=== PATIENT | male | born 1975 | race Caucasian/White ===

== ENCOUNTER 2019-07-14 10:45 | Observation (INO) | payer OTHER ==
[2019-07-14] MEDS ORDERED: ASPIRIN 81 MG PO STA (11:28)
[2019-07-14] MEDS ORDERED: NITROGLYCERIN OINT 1 INCH/GM PACKET TOPICAL STA (11:28)
--- NOTE | 2019-07-14 11:33 | ED ---
General Adult HPI - General Chief complaint: Chest Pain Stated complaint: hand pain/swelling Time Seen by Provider: 07/14/19 11:15 Source: patient, RN notes reviewed, old records reviewed Mode of arrival: ambulatory Limitations: no limitations - History of Present Illness Initial comments: This is a 43-year-old male who presents emergency department with past medical history significant for smoking and has a strong family history of heart disease. Patient states he's been having intermittent chest pain over the last 2 weeks he states it lasted for about 5-20 minutes at a time and it comes every day for 5 times today. Patient states she's also had some fluttering in his chest. Patient denies any shortness of breath or radiation of the discomfort. Patient denies any nausea. Patient states however he does break out in sweats where he has actually perspiration on his forehead. Patient denies any previous cardiac history. Patient denies any recent fever or chills. Patient denies any abdominal pain patient denies any vomiting or diarrhea. Patient also is complaining of right hand dysfunction. Patient states 3 months ago he fell on it he saw his primary medical care doctor and was swollen up he was unable to flex or extend the hand but it seemed to improve but over the last 2 weeks is a little swelling to the posterior aspect of the hand and he is unable to flex or extend again. Patient states she's had no further injury.. - Related Data Allergies Allergy/AdvReac Type Severity Reaction Status Date / Time acetaminophen [From Tylenol] Allergy Swelling Verified 07/14/19 11:18 erythromycin base Allergy kidney Verified 07/14/19 11:17 failure Review of Systems ROS Statement: Those systems with pertinent positive or pertinent negative responses have been documented in the HPI. ROS Other: All systems not noted in ROS Statement are negative. Past Medical History Past Medical History: COPD Additional Past Medical History / Comment(s): ibs History of Any Multi-Drug Resistant Organisms: MRSA Date of last positivie culture/infection: 2019 Past Surgical History: Appendectomy, Back Surgery Additional Past Surgical History / Comment(s): exp lap - abd Past Psychological History: No Psychological Hx Reported Smoking Status: Current every day smoker Past Alcohol Use History: None Reported Past Drug Use History: Marijuana General Exam - General Exam Comments Initial Comments: GENERAL: Patient is well-developed and well-nourished. Patient is nontoxic and well- hydrated and is in no acute distress. ENT: Neck is soft and supple. No significant lymphadenopathy is noted. Oropharynx is clear. Moist mucous membranes. Neck has full range of motion without eliciting any pain. EYES: The sclera were anicteric and conjunctiva were pink and moist. Extraocular movements were intact and pupils were equal round and reactive to light. Eyelids were unremarkable. PULMONARY: Unlabored respirations. Good breath sounds bilaterally. No audible rales rhonchi or wheezing was noted. CARDIOVASCULAR: There is a regular rate and rhythm without any murmurs gallops or rubs. ABDOMEN: Soft and nontender with normal bowel sounds. No palpable organomegaly was noted. There is no palpable pulsatile mass. SKIN: Skin is clear with no lesions or rashes and otherwise unremarkable. NEUROLOGIC: Patient is alert and oriented x3. Cranial nerves II through XII are grossly in tact. Motor and sensory are also intact. Normal speech, volume and content. Symmetrical smile. MUSCULOSKELETAL: Patient has slight swelling to the posterior aspect of the right hand just above the wrist. Patient also is very weak with flexion and extension of that wrist. LYMPHATICS: No significant lymphadenopathy is noted PSYCHIATRIC: Normal psychiatric evaluation. 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 Patient's EKG shows no ST segment elevation or depression. Chest x-ray shows no acute abnormality Patient is chest pain-free at this time. I spoke to the [facility]ist agreed to admit the patient admitted the patient wrote admitting orders. I consult cardiology. - Lab Data Result diagrams: 07/14/19 11:30 07/14/19 11:30 Lab Results 07/14/19 07/14/19 07/14/19 Range/Units 11:30 11:30 11:30 WBC 9.5 (3.8-10.6) k/uL RBC 4.88 (4.30-5.90) m/uL Hgb 15.5 (13.0-17.5) gm/dL Hct 47.3 (39.0-53.0) % MCV 97.0 (80.0-100.0) fL MCH 31.7 (25.0-35.0) pg MCHC 32.7 (31.0-37.0) g/dL RDW 13.6 (11.5-15.5) % Plt Count 365 (150-450) k/uL Neutrophils % 80 % Lymphocytes % 15 % Monocytes % 2 % Eosinophils % 2 % Basophils % 0 % Neutrophils # 7.6 (1.3-7.7) k/uL Lymphocytes # 1.4 (1.0-4.8) k/uL Monocytes # 0.2 (0-1.0) k/uL Eosinophils # 0.2 (0-0.7) k/uL Basophils # 0.0 (0-0.2) k/uL PT 9.3 (9.0-12.0) sec INR 0.9 (<1.2) APTT 20.3 L (22.0-30.0) sec Sodium 136 L (137-145) mmol/L Potassium 3.5 (3.5-5.1) mmol/L Chloride 105 (98-107) mmol/L Carbon Dioxide 24 (22-30) mmol/L Anion Gap 7 mmol/L BUN 14 (9-20) mg/dL Creatinine 0.82 (0.66-1.25) mg/dL Est GFR (CKD-EPI)AfAm >90 (>60 ml/min/1.73 sqM) Est GFR (CKD-EPI)NonAf >90 (>60 ml/min/1.73 sqM) Glucose 118 H (74-99) mg/dL Calcium 9.0 (8.4-10.2) mg/dL Magnesium 1.9 (1.6-2.3) mg/dL Total Bilirubin 1.1 (0.2-1.3) mg/dL AST 35 (17-59) U/L ALT 20 (4-49) U/L Alkaline Phosphatase 103 (38-126) U/L Troponin I (0.000-0.034) ng/mL Total Protein 6.1 L (6.3-8.2) g/dL Albumin 3.8 (3.5-5.0) g/dL 07/14/19 Range/Units 11:30 WBC (3.8-10.6) k/uL RBC (4.30-5.90) m/uL Hgb (13.0-17.5) gm/dL Hct (39.0-53.0) % MCV (80.0-100.0) fL MCH (25.0-35.0) pg MCHC (31.0-37.0) g/dL RDW (11.5-15.5) % Plt Count (150-450) k/uL Neutrophils % % Lymphocytes % % Monocytes % % Eosinophils % % Basophils % % Neutrophils # (1.3-7.7) k/uL Lymphocytes # (1.0-4.8) k/uL Monocytes # (0-1.0) k/uL Eosinophils # (0-0.7) k/uL Basophils # (0-0.2) k/uL PT (9.0-12.0) sec INR (<1.2) APTT (22.0-30.0) sec Sodium (137-145) mmol/L Potassium (3.5-5.1) mmol/L Chloride (98-107) mmol/L Carbon Dioxide (22-30) mmol/L Anion Gap mmol/L BUN (9-20) mg/dL Creatinine (0.66-1.25) mg/dL Est GFR (CKD-EPI)AfAm (>60 ml/min/1.73 sqM) Est GFR (CKD-EPI)NonAf (>60 ml/min/1.73 sqM) Glucose (74-99) mg/dL Calcium (8.4-10.2) mg/dL Magnesium (1.6-2.3) mg/dL Total Bilirubin (0.2-1.3) mg/dL AST (17-59) U/L ALT (4-49) U/L Alkaline Phosphatase (38-126) U/L Troponin I <0.012 (0.000-0.034) ng/mL Total Protein (6.3-8.2) g/dL Albumin (3.5-5.0) g/dL Disposition Clinical Impression: Chest pain, Fracture of triquetrum Disposition: ADMITTED IP TO THIS HOSP Referrals: Marcelino Fonseca MD [Primary Care Provider] - 1-2 days Time of Disposition: 13:12
[2019-07-14 11:55] LABS: Basophils % (A) 0 %; Eosinophils # (A) 0.2 k/uL (0-0.7); Eosinophils % (A) 2 %; HCT 47.3 % (39.0-53.0); HGB 15.5 gm/dL (13.0-17.5); Lymphocytes # (A) 1.4 k/uL (1.0-4.8); Lymphocytes % (A) 15 %; MCH 31.7 pg (25.0-35.0); MCHC 32.7 g/dL (31.0-37.0); Mean Platelet Volume 6.8; Monocytes # (A) 0.2 k/uL (0-1.0); Monocytes % (A) 2 %; Neutrophils # (A) 7.6 k/uL (1.3-7.7); Neutrophils % (A) 80 %; Platelet Count 365 k/uL (150-450); RBC 4.88 m/uL (4.30-5.90); RDW 13.6 % (11.5-15.5); WBC 9.5 k/uL (3.8-10.6)
--- NOTE | 2019-07-14 11:57 | XR ---
EXAMINATION TYPE: XR chest 2V DATE OF EXAM: 07/14/2019 COMPARISON: 02/09/2011 HISTORY: Chest pain for 2 weeks TECHNIQUE: Frontal and lateral views of the chest are obtained. FINDINGS: There is no focal air space opacity, pleural effusion, or pneumothorax seen. The cardiac silhouette size is within normal limits. The osseous structures are intact. IMPRESSION: No acute cardiopulmonary process.
--- NOTE | 2019-07-14 11:59 | XR ---
EXAMINATION TYPE: XR wrist complete RT, XR hand complete RT DATE OF EXAM: 07/14/2019 CLINICAL HISTORY: Fall injury 2 months ago with persistent pain and swelling TECHNIQUE: Frontal, lateral and oblique images of the right hand and wrist are obtained. Fourth scap hoid view right wrist. COMPARISON: None FINDINGS: Demineralization is present. There is suspected subtle nondisplaced fracture of the trique trum seen on oblique and lateral projections along dorsal aspect. The joint spaces in the right wris t appear within normal limits. The overlying soft tissue appears unremarkable. There is foreshortening of the fifth metacarpal with prominent metaphysis suggesting old healed fract ure at this level. No linear lucency to suggest acute fracture is evident. Joint spaces of right hand are preserved. IMPRESSION: There is a suspected acute nondisplaced linear fracture involving the triquetrum along u lnar dorsal aspect. Suspect old healed fracture base of fifth metacarpal.
[2019-07-14 12:07] LABS: ALT 20 U/L (4-49); AST 35 U/L (17-59); African American GFR (CKD) >90 (>60 ml/min/1.73 sqM); Albumin 3.8 g/dL (3.5-5.0); Alkaline Phosphatase 103 U/L (38-126); Anion Gap 7 mmol/L; Blood Urea Nitrogen 14 mg/dL (9-20); Carbon Dioxide 24 mmol/L (22-30); Chloride 105 mmol/L (98-107); Glucose 118 mg/dL (74-99); Magnesium 1.9 mg/dL (1.6-2.3); Non-African American GFR(CKD) >90 (>60 ml/min/1.73 sqM); Potassium 3.5 mmol/L (3.5-5.1); Sodium 136 mmol/L (137-145); Total Bilirubin 1.1 mg/dL (0.2-1.3); Total Protein 6.1 g/dL (6.3-8.2)
[2019-07-14 12:10] LABS: INR 0.9 (<1.2); Prothrombin Time 9.3 sec (9.0-12.0)
[2019-07-14 12:40] LABS: Partial Thromboplastin Time 20.3 sec (22.0-30.0)
[2019-07-14] MEDS ORDERED: NITROGLYCERIN SL TABS 0.4 MG TAB SUBLINGUAL PRN (13:12)
[2019-07-14] MEDS ORDERED: KETOROLAC 30 MG/ML 1 ML VIAL IVP STA ×2 (15:32→20:19)
[2019-07-14] MEDS: NITROGLYCERIN OINT 1 INCH/GM PACKET TOPICAL SCH (19:54)
[2019-07-14 23:55] VITALS: RESP 18
--- NOTE | 2019-07-15 00:29 | HP ---
HISTORY AND PHYSICAL CHIEF COMPLAINT: Chest pain and right wrist pain. HISTORY OF PRESENT ILLNESS: This 43-year-old gentleman with a past medical history of multiple medical problems including COPD, history of IBS, history of MRSA, history of appendectomy, history of DJD, exploratory laparotomy, being followed Dr. Fonseca in the outpatient setting, was complaining of chest pain on and off for the last several days. The pain was felt in the anterior part of the chest and subsequently radiated to the right side of the chest and as well as to the right side of the neck. The pain lasts about 20 minutes and comes and goes up to 5 times a day and patient also had some fluttering of the chest. Because of multiple symptomatology, patient came to [facility] and was admitted to the hospital for further evaluation and treatment. Also the patient had a recent fall because of the pain on the right hand, because the right hand is swollen and the x-ray showed possibly right wrist fracture with suspected acute nondisplaced linear fracture involving the triquetrum, also under the dorsal aspect suspect old healed fracture of the 5th metacarpal also, suspected and orthopedic evaluation in progress at this time. There is no history of fever, rigors or chills. No history of headache, loss of consciousness or seizures. No history any hematochezia or melena at this time. PAST MEDICAL: COPD, irritable bowel syndrome, history of MRSA, history of nicotine dependence, exploratory laparotomy. MEDICATIONS: Ibuprofen p.r.n. ALLERGIES: TYLENOL, ERYTHROMYCIN BASE. FAMILY HISTORY: Family history of coronary artery disease in multiple members of family. SOCIAL HISTORY: Patient used to smoke up to 4 packs and cut down to half pack according to him. No history of alcohol intake, THC. REVIEW OF SYSTEMS: ENT: No diminished vision. No diminished hearing. CARDIOVASCULAR as mentioned earlier. RESPIRATORY: As mentioned earlier. GI no nausea or vomiting. no dysuria. NERVOUS SYSTEM: No numbness or weakness. ALLERGY/IMMUNOLOGY: No asthma or hayfever. MUSCULOSKELETAL as mentioned earlier. HEMATOLOGY/ONCOLOGY: No history of anemia. ENDOCRINE: No history of diabetes, hypothyroid. CONSTITUTIONAL: As mentioned earlier. DERMATOLOGY: Negative. RHEUMATOLOGY negative. PSYCHIATRY as mentioned earlier. PHYSICAL EXAMINATION: Alert and oriented times three. Pulse 88. Blood pressure 124/87, respirations 16, temperature 97.6. Pulse ox 97% on 2 L. HEENT is conjunctivae normal. Oral mucosa moist. NECK is no jugular venous distention. No carotid bruit. No lymph node enlargement. Cardiovascular system: S1, S2 muffled. No S3, no S4. RESPIRATORY: Breath sounds diminished in the bases. A few scattered rhonchi and crackles. Expiratory wheezing also present. ABDOMEN: Soft, nontender. No mass palpable. LEGS: No edema. No swelling. NERVOUS SYSTEM: Higher functions as mentioned earlier. Moves all 4 limbs. No focal motor or sensory deficits. LYMPHATICS: No lymph nodes palpable in the neck, axillae or groin. SKIN: No ulcer, rash, bleeding. Examination of the joints shows right wrist joint is in the cast now. LABS: CBC within normal limits. Sodium 136, glucose 118 and total protein 6.1. The EKG, x- rays are personally reviewed by me. EKG showed normal sinus rhythm, no acute abnormality. ASSESSMENT: 1. Chest pain possible unstable angina. 2. Right fall and right wrist fracture possibly with suspected nondisplaced linear fracture involving the triquetrum and as well as suspected old healed fracture of the base of the 5th metacarpal. 3. Chronic obstructive pulmonary disease. 4. History of nicotine dependence. 5. History of irritable bowel syndrome. 6. History of MRSA. 7. History of degenerative joint disease, back surgery. 8. History of exploratory laparotomy, lap band. 9. History of THC. RECOMMENDATIONS AND DISCUSSION: In this 43-year-old gentleman who presented with multiple medical issues, at this time, I recommend to continue current medications, continue management and symptomatic treatment. Keep the patient n.p.o. after midnight. Cardiology consult. Possible stress test. Rule out myocardial infarction. Unstable angina protocol. I would also recommend symptomatic treatment. Resume the home medications and also recommend orthopedic evaluation as well regarding the possible fracture of the right wrist. Otherwise, prognosis guarded. Further recommendations to follow. A copy of this dictation being forwarded to Dr. Fonseca who is the primary physician. MMODL / IJN: [id number] / MTDD
[2019-07-15] MEDS: NITROGLYCERIN OINT 1 INCH/GM PACKET TOPICAL SCH ×3 (00:45→08:58)
[2019-07-15 05:37] LABS: Cholesterol 191 mg/dL (<200); HDL Cholesterol 68 mg/dL (40-60); LDL Cholesterol,Calculated 108 mg/dL (0-99); Triglycerides 77 mg/dL (<150)
[2019-07-15] MEDS ORDERED: INFLUENZA VACCINE (6 MOS+) 60 MCG/0.5 ML SYRINGE IM ONE (08:49)
[2019-07-15] MEDS ORDERED: ASPIRIN 325 MG TAB PO SCH (09:00)
[2019-07-15] MEDS ORDERED: NICOTINE 14MG/24HR PATCH TRANSDERM SCH (09:00)
--- NOTE | 2019-07-15 09:34 | P.CNOR ---
History of Present Illness - [facility] Consult date: 07/15/19 History of present illness: This patient is a 43-year-old male with past medical history of cigarette smoking, MRSA, and history of L4-L5 lumbar fusion that presented to [facility] emergency department on 07/14/2019 with complaints of chest pain and right wrist pain. The patient was admitted under the care of internal medicine with a consult placed to orthopedic surgery in regards to his right wrist pain. The patient states he sustained an injury to the right wrist about 1-2 months ago. He states he was walking on the stairs when his legs "gave out ". He states he caught himself with the right wrist. He states he has been experiencing diffuse wrist pain since this time. He states he was seen by his primary care physicia n, x-rays were taken and the patient was told he did not sustain a fracture and was placed on steroids. He states his steroids helped his pain minimally. He states the pain has been worsening over the past few weeks. He localizes the pain to the radial wrist with radiation into the palm of the hand. He denies erythema, warmth of the wrist or hand. He states it does swell significantly with use. He also notes decreased assembler truck trailer strength and loss of full extension and flexion of the wrist. He notes the only thing that is improved his pain is immobilization and use an antibiotic for recent MRSA infection. He notes recent fevers and chills. He denies current numbness or tingling of the right upper extremity. There are no additional complaints at the time of exam. Past Medical History Past Medical History: COPD, GERD/Reflux Additional Past Medical History / Comment(s): Occasional low back pain, herniated S1, chronic abdominal pain, IBS, benign colon polyps, occasional palpitations History of Any Multi-Drug Resistant Organisms: MRSA Year Discovered:: 2019 MDRO Source:: R side neck Past Surgical History: Appendectomy, Back Surgery Additional Past Surgical History / Comment(s): exp lap - abd-found hernia but pt unsure type, back fusion L4//L5, EGD, colonoscopies/benign polypectomies Past Anesthesia/Blood Transfusion Reactions: No Reported Reaction Additional Past Anesthesia/Blood Transfusion Reaction / Comm: Pt states he needs his spouse in the recovery room because he wakes up in a panic. Smoking Status: Current every day smoker - Past Family History Father Family Medical History: Congestive Heart Failure (CHF), Myocardial Infarction (NV), Pneumonia Additional Family Medical History / Comment(s): Father at the age of 52 or 55yrs from complications of an earlier NV. Pt states he had his NV at either age 49 or 52. Mother Family Medical History: No Reported History Additional Family Medical History / Comment(s): Mother is healthy. Medications and Allergies Home Medications Medication Instructions Recorded Confirmed Type Ibuprofen [Motrin] 800 mg PO TID PRN 07/14/19 07/14/19 History Allergies Allergy/AdvReac Type Severity Reaction Status Date / Time acetaminophen [From Tylenol] Allergy Swelling Verified 07/14/19 13:15 erythromycin base AdvReac kidney Verified 07/14/19 13:15 failure Physical Examination On examination, the patient is sitting in bed in no apparent distress. He is alert and oriented 3. His head appears normocephalic and atraumatic. His breathing appears non-labored. On inspection of the right wrist, there were no obvious deformities. There is swelling of the dorsal wrist. There is no erythema, warmth, or skin discoloration. There is diffuse tenderness on palpation of the radial side of the wrist. No ulnar tenderness. Patient has decreased active flexion and extension of the wrist. Mild pain with passive range of motion of the wrist. Decreased assembler truck trailer strength of the right compared to the left. Motor and sensory function appear to be intact in the right upper extremity. Radial pulse palpable, the right wrist and hand are warm and well perfused with capillary refill distally. Results Right wrist x-ray 07/14/2019: Possible nondisplaced triquetrum fracture. - Labs Labs: Abnormal Lab Results - Last 24 Hours (Table) 07/14/19 07/14/19 07/14/19 Range/Units 11:30 11:30 11:30 APTT 20.3 L (22.0-30.0) sec Sodium 136 L (137-145) mmol/L Glucose 118 H (74-99) mg/dL Total Protein 6.1 L (6.3-8.2) g/dL LDL Cholesterol, Calc 108 H (0-99) mg/dL HDL Cholesterol 68 H (40-60) mg/dL H & H 07/14/19 Range/Units 11:30 Hgb 15.5 (13.0-17.5) gm/dL Hct 47.3 (39.0-53.0) % Coagulation 07/14/19 Range/Units 11:30 INR 0.9 (<1.2) Result Diagrams: 07/14/19 11:30 07/14/19 11:30 Assessment and Plan Assessment: Right wrist pain. Possible nondisplaced triquetrum fracture, right. Plan: - Clinical and imaging findings were discussed with the patient. Recommended we obtain an MRI of the right wrist. We will also obtain CRP and ESR to rule-out an infectious cause for his continued pain. - Continue immobilization of the right wrist with current volar splint. - Ice and elevate right wrist for pain and swelling control. - Pain management per primary team. - Further recommendations will be based on additional laboratory and imaging findings. Patient discussed with Dr. Jhaveri.
--- NOTE | 2019-07-15 10:41 | P.CRDCN ---
History of Present Illness History of present illness: HISTORY OF PRESENTING ILLNESS This is a pleasant 43-year-old male past medical history significant for chronic nicotine dependence, chronic back pain and significant family history of premature coronary artery disease with his father having his first cardiac event in his early 50s and ultimately passing away at the age of 54 from heart disease. 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 We have been asked to see in consultation for chest pain. He states for the previous one to 2 months he has been having intermittent episodes of sharp chest discomfort that radiates up into the right shoulder associated with feeling mildly lightheaded, nausea and diaphoretic. His symptoms are not related to exertion or activity. At times they are postprandial. He denies associated palpitations or shortness of sherie ath. He is also complaining of right wrist discomfort s/p fall 1-2 months ago. Ortho has been placed on consult secondary to right wrist triquetrum fracture. Splint has been applied in the ER. DIAGNOSTICS EKG reveals sinus mechanism with no acute ST or T wave abnormalities noted. Chest xray negative for an acute cardiopulmonary process. Laboratory reviewed, CBC unremarkable, sodium 136, potassium 3.5, creatinine 0.82, cardiac enzymes negative 3, CRP 12, LDL 108. He takes no daily cardiac medications. REVIEW OF SYSTEMS At the time of my exam: CONSTITUTIONAL: Denies fever or chills. CARDIOVASCULAR: Denies chest pain, shortness of breath, orthopnea, PND or palpitations. RESPIRATORY: Denies cough. GASTROINTESTINAL: Denies abdominal pain, diarrhea, constipation, nausea or vomiting. MUSCULOSKELETAL: Denies myalgias. NEUROLOGIC: Denies numbness, tingling or weakness. ENDOCRINE: Denies fatigue, weight change, polydipsia or polyurina. GENITOURINARY: Denies burning, hematuria or urgency with micturation. HEMATOLOGIC: Denies history of anemia or bleeding. PHYSICAL EXAMINATION Blood pressure 151/84 heart rate 61 afebrile and maintaining oxygen saturation on room air. CONSTITUTIONAL: No apparent distress. HEENT: Head is normocephalic. Pupils are equal, round. Sclerae anicteric. Mucous membranes of the mouth are moist. No JVD. No carotid bruit. CHEST EXAMINATION: Expiratory wheezes, no rales or rhonchi. No chest wall tenderness is noted on palpation or with deep breathing. HEART EXAMINATION: Regular rate and rhythm. S1, S2 heard. No murmurs, gallops or rub. ABDOMEN: Soft, nontender. Positive bowel sounds. EXTREMITIES: 2+ peripheral pulses, no lower extremity edema and no calf tenderness. NEUROLOGIC EXAMINATION: Patient is awake, alert and oriented x3. ASSESSMENT Chest pain, atypical for angina. An acute event has been ruled out. Right wrist triquetrum fracture Hypertension Dyslipidemia Chronic nicotine dependence Significant family history of premature coronary artery disease PLAN An acute event has been ruled out. Obtain 2D echocardiogram and doppler study to assess cardiac structure and function. Perform stress echocardiogram to assess for stress induced ischemia. Check d-dimer to rule out a PE. Smoking cessation recommended. Nicotine patch provided. Lifestyle modifications recommended for lowering of LDL cholesterol. If stress test is normal he is stable from a cardiac perspective. Thank you kindly for this consultation. Nurse Practitioner note has been reviewed, I agree with a documented findings and plan of care. Patient was seen and examined. Past Medical History Past Medical History: COPD Additional Past Medical History / Comment(s): ibs History of Any Multi-Drug Resistant Organisms: MRSA Date of last positivie culture/infection: 2018 Past Surgical History: Appendectomy, Back Surgery Additional Past Surgical History / Comment(s): exp lap - abd Past Psychological History: No Psychological Hx Reported Smoking Status: Current every day smoker Past Alcohol Use History: None Reported Past Drug Use History: Marijuana - Past Family History Father Family Medical History: Congestive Heart Failure (CHF), Myocardial Infarction (CO), Pneumonia Additional Family Medical History / Comment(s): Father at the age of 52 or 55yrs from complications of an earlier CO. Pt states he had his CO at either age 51 or 52. Mother Family Medical History: No Reported History Additional Family Medical History / Comment(s): Mother is healthy. Medications and Allergies Home Medications Medication Instructions Recorded Confirmed Type Ibuprofen [Motrin] 800 mg PO TID PRN 07/14/19 07/14/19 History Allergies Allergy/AdvReac Type Severity Reaction Status Date / Time acetaminophen [From Tylenol] Allergy Swelling Verified 07/14/19 13:15 erythromycin base AdvReac kidney Verified 07/14/19 13:15 failure Physical Exam Vitals: Vital Signs Temp Pulse Pulse Resp BP Pulse Ox 07/15/19 08:00 98.0 F 84 18 112/66 98 07/15/19 00:24 82 18 133/95 98 07/14/19 23:30 71 18 97 07/14/19 23:00 75 17 96 07/14/19 22:30 70 18 97 07/14/19 22:00 65 18 98 07/14/19 21:30 65 21 97 07/14/19 21:00 71 16 98 07/14/19 20:30 59 L 18 99 07/14/19 20:00 68 16 129/84 98 07/14/19 19:30 71 16 125/87 07/14/19 19:00 70 21 117/82 100 07/14/19 18:30 64 18 114/81 96 07/14/19 18:00 78 18 122/79 97 07/14/19 17:39 73 18 122/73 98 07/14/19 17:30 73 18 130/85 97 07/14/19 17:00 62 15 123/108 99 07/14/19 16:30 62 14 123/87 97 07/14/19 15:30 112/84 07/14/19 15:00 61 17 126/85 100 07/14/19 14:30 68 18 127/91 99 07/14/19 14:00 72 13 134/89 98 07/14/19 13:30 67 14 122/97 07/14/19 13:29 88 16 122/87 97 07/14/19 13:00 72 18 140/97 99 07/14/19 12:30 84 16 164/111 99 07/14/19 12:00 93 8 L 146/109 99 07/14/19 11:32 96 07/14/19 11:30 85 22 99 07/14/19 11:12 97.6 F 112 H 18 157/102 99 Results 07/14/19 11:30 07/14/19 11:30 Cardiac Enzymes 07/14/19 07/14/19 07/14/19 Range/Units 11:30 11:30 17:51 AST 35 (17-59) U/L Troponin I <0.012 <0.012 (0.000-0.034) ng/mL 07/14/19 Range/Units 23:02 AST (17-59) U/L Troponin I <0.012 (0.000-0.034) ng/mL Coagulation 07/14/19 Range/Units 11:30 PT 9.3 (9.0-12.0) sec APTT 20.3 L (22.0-30.0) sec Lipids 07/14/19 Range/Units 11:30 Triglycerides 77 (<150) mg/dL Cholesterol 191 (<200) mg/dL HDL Cholesterol 68 H (40-60) mg/dL CBC 07/14/19 Range/Units 11:30 WBC 9.5 (3.8-10.6) k/uL RBC 4.88 (4.30-5.90) m/uL Hgb 15.5 (13.0-17.5) gm/dL Hct 47.3 (39.0-53.0) % Plt Count 365 (150-450) k/uL Comprehensive Metabolic Panel 07/14/19 Range/Units 11:30 Sodium 136 L (137-145) mmol/L Potassium 3.5 (3.5-5.1) mmol/L Chloride 105 (98-107) mmol/L Carbon Dioxide 24 (22-30) mmol/L BUN 14 (9-20) mg/dL Creatinine 0.82 (0.66-1.25) mg/dL Glucose 118 H (74-99) mg/dL Calcium 9.0 (8.4-10.2) mg/dL AST 35 (17-59) U/L ALT 20 (4-49) U/L Alkaline Phosphatase 103 (38-126) U/L Total Protein 6.1 L (6.3-8.2) g/dL Albumin 3.8 (3.5-5.0) g/dL Current Medications Generic Name Dose Route Start Last Admin Trade Name Adriana PRN Reason Stop Dose Admin Aspirin 325 mg 07/15/19 09:00 Aspirin PO DAILY [facility] Nitroglycerin 0.4 mg 07/14/19 13:12 Nitrostat SUBLINGUAL Q5M PRN Chest Pain Nitroglycerin 1 inch 07/14/19 18:00 07/15/19 06:43 Nitro-Bid Oint TOPICAL 1 inch Q6HR MADONNA Administration 07/14/19 11:30 07/14/19 11:30
[2019-07-15] MEDS ORDERED: LISINOPRIL 5 MG TAB PO SCH (10:45)
--- NOTE | 2019-07-15 11:20 | ECHOF ---
Referral Reason:cp MEASUREMENTS -------- HEIGHT: 162.6 cm WEIGHT: 71.2 kg BP: RVIDd: 2.4 cm (< 3.3) IVSd: 1.2 cm (0.6 - 1.1) LVIDd: 4.0 cm (3.9 - 5.3) LVPWd: 1.2 cm (0.6 - 1.1) IVSs: 1.7 cm LVIDs: 2.2 cm LVPWs: 1.9 cm LAESV Index (A-L): 19.47 ml/m Ao Diam: 3.4 cm (2.0 - 3.7) AV Cusp: 2.6 cm (1.5 - 2.6) LA Diam: 3.3 cm (2.7 - 3.8) MV EXCURSION: 12.842 mm (> 18.000) MV EF SLOPE: 156 mm/s (70 - 150) EPSS: 0.9 cm MV E Moy: 0.83 m/s MV DecT: 272 ms MV A Moy: 0.63 m/s MV E/A Ratio: 1.31 AR PHT: 257 ms RAP: 5.00 mmHg RVSP: 21.15 mmHg FINDINGS -------- Sinus rhythm. This was a technically good study. The left ventricular size is normal. There is mild concentric left ventricular hypertrophy. Overa ll left ventricular systolic function is normal with, an EF between 55 - 60 %. The diastolic fillin g pattern is normal . The right ventricle is normal in size. The left atrial size is normal. Normal LA size by volume 22+/-6 ml/m2. The right atrial size is normal. The aortic valve is trileaflet and appears structurally normal. Trace amount of aortic regurgitatio n. The mitral valve is normal. The mitral valve leaflets are mildly thickened. There is trace mitral regurgitation. The tricuspid valve appears structurally normal. Trace tricuspid regurgitation present. Right ursula tricular systolic pressure is normal at < 35 mmHg. There is no pulmonic regurgitation present. The aortic root size is normal. Normal inferior vena cava with normal inspiratory collapse consistent with estimated right atrial pre ssure of 5 mmHg. There is no pericardial effusion. CONCLUSIONS -------- 1. Sinus rhythm. 2. This was a technically good study. 3. The left ventricular size is normal. 4. There is mild concentric left ventricular hypertrophy. 5. Overall left ventricular systolic function is normal with, an EF between 55 - 60 %. 6. The diastolic filling pattern is normal . 7. The right ventricle is normal in size. 8. The left atrial size is normal. 9. Normal LA size by volume 22+/-6 ml/m2. 10. The right atrial size is normal. 11. The aortic valve is trileaflet and appears structurally normal. 12. Trace amount of aortic regurgitation. 13. The mitral valve is normal. 14. The mitral valve leaflets are mildly thickened. 15. There is trace mitral regurgitation. 16. The tricuspid valve appears structurally normal. 17. Trace tricuspid regurgitation present. 18. Right ventricular systolic pressure is normal at < 35 mmHg. 19. There is no pulmonic regurgitation present. 20. The aortic root size is normal. 21. Normal inferior vena cava with normal inspiratory collapse consistent with estimated right atrial pressure of 5 mmHg. 22. There is no pericardial effusion. EVENT MGR: Gaby Calderon RDCS
--- NOTE | 2019-07-15 14:33 | MR ---
EXAMINATION TYPE: MR wrist RT wo con DATE OF EXAM: 07/15/2019 COMPARISON: Right wrist radiographs dated 07/14/2019 HISTORY: Rt hand/wrist pain and swelling S/P fall 2 mos ago TECHNIQUE: Multiplanar, multisequence images of the right were acquired without intravenous contrast. FINDINGS: There is a linear area of T2 hyperintensity and T1 hypointensity within the triquetrum at i ts ulnar and dorsal aspect corresponding to the subtle cortical defect seen on the x-ray of 07/07/2019 representing an acute nondisplaced fracture. The adjacent lunate demonstrates pronounced bone marrow edema and subcortical cystic change. The adjacent hamate also demonstrates bone marrow edema with ve ry mild edema of the capitate and subcortical cystic change of the capitate. There is also some edema seen in the trapezium and cystic change of the trapezoid. Scaphoid appears unaffected. Ligamentous structures of the wrist are markedly limited given patient motion artifact and artifact f rom casting material overlying the wrist. There is a small joint effusion and scant amount of fluid i n the distal radioulnar joint suggesting at least punctate benign visualized triangular fibrocartilag e tear. There is bone marrow edema seen in the proximal base of the second metacarpal without visualized frac ture line. Old healed fracture deformity of the base of the fifth metacarpal. Minimal amount of fluid is seen within the carpal tunnel. Very mild soft tissue swelling of the wrist . Carpal carpal alignment is maintained in the proximal and distal carpal rows. IMPRESSION: 1. Confirmation of a subtle acute nondisplaced triquetrum fracture. 2. Multifocal carpal bone marrow edema most pronounced of the lunate. 3. Bone marrow edema of the base of the second metacarpal without visible fracture line. 4. Small joint effusion of the wrist with scant fluid seen in the distal radial ulnar joint suggestiv e of an at least punctate irregular fibrocartilage tear. There is limitation in evaluation of the lig amentous structures given motion artifact. 5. Trace amount of fluid in the carpal tunnel and diffuse mild subcutaneous edema of the wrist. 6. Multifocal subcortical osseous cysts of the carpal bones, typically degenerative.
--- NOTE | 2019-07-15 14:49 | CT ---
EXAMINATION TYPE: CT angio chest DATE OF EXAM: 07/15/2019 COMPARISON: None HISTORY: Shortness of breath and chest pressure CT DLP: 297.5 mGycm CONTRAST: CT chest with contrast and 3D reconstruction with MIP imaging is performed with IV Contrast, patient injected with 100 mL of Isovue 370. Contrast-enhanced CT of the chest was performed through the course of the pulmonary arteries with martell g and mediastinal window settings submitted. 3D reconstruction with MIP imaging was also performed. PULMONARY ARTERIES: The pulmonary arteries and their major tributaries are patent. I do not see amie dence for sizable filling defect to suggest pulmonary embolic process. LUNGS: The lungs are clear and free of infiltrate. No evidence for atelectasis. No pulmonary nodule or mass is detected. No pleural effusion. MEDIASTINUM: Thoracic aorta is of normal caliber,however, evaluation is limited given timing of the contrast bolus. If there is concern for thoracic aortic pathology consider SONIDO. Correlate clinicall y . The heart is not enlarged. No evidence for mediastinal mass. No mediastinal lymph nodes greater than 1cm. HILAR STRUCTURES: No evidence for mass. No hilar lymph nodes greater than 1 cm. UPPER ABDOMEN: No significant abnormality is seen. IMPRESSION: 1. No evidence for Pulmonary embolism at this time.
[2019-07-15 16:20] VITALS: BP 117/78; TEMP 97.9
[2019-07-15 16:33] VITALS: PULSE 96
--- NOTE | 2019-07-15 20:14 | P.STRESS ---
- Stress Test Note Stress Test Results/Findings: Exam Performed: stress echo exercise Exam Date: 07/15/19 Reason for Exam: CHEST PAIN Height: 5 ft 4 in Weight: 71.21 kg Protocol: RIAN Stage: 4 Duration of Exercise: 9:30 Resting Heart Rate: 66 Resting Blood Pressure: 122/71 Maximum Achieved Heart Rate: 154 Maximum Achieved Blood Pressure: 190/98 85% PMHR: 152 100% PMHR: 179 METS: 11.3 Technologist Comment: Stress Test Results/Findings: This is a 43-year-old gentleman was admitted to the hospital with chest pain and palpitations. Stress data: Baseline EKG showed sinus rhythm with normal TN interval and QRS duration. Blood pressure at rest is 120/71 with pulse rate of 66. Patient walked on the Rian protocol for 9 minutes and 50 seconds achieving a maximum heart rate of 154 with a blood pressure 1 9198. EKGs taken during and after exercise did not reveal any significant changes from the baseline. Echo data: Baseline echo images show normal wall motion and thickening. Exercise echo images showed augmentation of wall motion and thickening in all the segments. Final impression: #1. Normal stress test #2. Normal stress echo. #3. Good exercise capacity
--- NOTE | 2019-07-16 06:14 | DS ---
DISCHARGE SUMMARY FINAL DIAGNOSES: 1. Chest pain, myocardial infarction ruled out. 2. Fall and right wrist pain possible fracture of the right wrist with suspected nondisplaced linear fracture involving the triquetrum and as well as suspected old healed fracture at the base of the fifth metacarpal. 3. Chronic obstructive pulmonary disease. 4. History of nicotine dependence. 5. History of irritable bowel syndrome. 6. History of methicillin-resistant Staphylococcus aureus. 7. History of degenerative joint disease, back surgery. 8. History of exploratory laparotomy, lap band. 9. History of THC. 10.Hypertension. DISCHARGE DISPOSITION: The patient will be discharged in stable condition with guarded prognosis after clearance from Cardiology and Orthopedic Surgery. HISTORY OF PRESENT ILLNESS: This 43-year-old gentleman with a past medical history of multiple medical problems being followed by Dr. Fonseca in the outpatient setting admitted with chest pain, mostly on the right side and radiating to the neck and left side of the chest. The patient's myocardial function ruled . Patient underwent a stress test and Orthopedics saw the patient and recommended MRI of the wrist. A CTA is also being carried out to rule out the possibility of pulmonary embolism. If the evaluations are negative and okay with Cardiology and Orthopedic Surgery, the patient will be discharged in stable condition and guarded prognosis. On exam, vitals are stable. CARDIOVASCULAR: S1, S2. ABDOMEN: Soft. NERVOUS SYSTEM: No focal deficits. DISCHARGE ADVICE: 1. Diet is cardiac. 2. Activity limited until followup. 3. Follow up with Dr. Fonseca in 2 to 3 days. 4. Follow up with Cardiology as recommended. 5. Follow up with Dr. Dobson as recommended. MEDICATIONS: 1. Ibuprofen p.r.n. 2. Habitrol 14 daily. 3. ProAir 2 puffs q.i.d. p.r.n. 4. Lisinopril 5 mg p.o. daily. MMODL / IJN: [id number] / [facility]
--- NOTE | 2019-07-16 16:17 | ECHOS ---
Stress Test Results/Findings: Exam Performed: stress echo exercise Exam Date: 07/15/19 Reason for Exam: CHEST PAIN Height: 5 ft 4 in Weight: 71.21 kg Protocol: RIAN Stage: 4 Duration of Exercise: 9:30 Resting Heart Rate: 66 Resting Blood Pressure: 122/71 Maximum Achieved Heart Rate: 154 Maximum Achieved Blood Pressure: 190/98 85% PMHR: 152 100% PMHR: 179 METS: 11.3 Technologist Comment: Stress Test Results/Findings: This is a 43-year-old gentleman was admitted to the hospital with chest pain and palpitations. Stress data: Baseline EKG showed sinus rhythm with normal MN interval and QRS duration. Blood pressure at rest is 120/71 with pulse rate of 66. Patient walked on the Rian protocol for 9 minutes and 50 seconds achieving a maximum heart rate of 154 with a blood pressure 1 9198. EKGs taken during and after exercise did not reveal any significant changes from the baseline. Echo data: Baseline echo images show normal wall motion and thickening. Exercise echo images showed augmentation of wall motion and thickening in all the segments. Final impression: #1. Normal stress test #2. Normal stress echo. #3. Good exercise capacity [facility]
== END 2019-07-15 17:57 | disposition home or self-care (01) ==
LOC: EC 10:45 → SUPCPDRO 10:45 → 1SOBS 13:17
PROVIDERS: ADMIT Hospitalist; ATTEND Hospitalist
DX: R07.9 Chest pain, unspecified (principal); M79.641 Pain in right hand; M25.531 Pain in right wrist; E78.5 Hyperlipidemia, unspecified; I10 Essential (primary) hypertension; J44.9 Chronic obstructive pulmonary disease, unspecified; Z23 Encounter for immunization; K58.9 Irritable bowel syndrome, unspecified; G89.29 Other chronic pain; R10.9 Unspecified abdominal pain; M54.9 Dorsalgia, unspecified; Z98.1 Arthrodesis status; K21.9 Gastro-esophageal reflux disease without esophagitis; K46.9 Unspecified abdominal hernia without obstruction or gangrene; F17.210 Nicotine dependence, cigarettes, uncomplicated; Z86.14 Personal history of Methicillin resistant Staphylococcus aureus infection; Z82.49 Family history of ischemic heart disease and other diseases of the circulatory system; Z83.6 Family history of other diseases of the respiratory system; Z79.899 Other long term (current) drug therapy; Z88.6 Allergy status to analgesic agent; Z88.1 Allergy status to other antibiotic agents
CPT/HCPCS: 96376; 96374; 99285; 36415; 93005; 93306; 93351; 85379; 80061; 80053; 85652; 83735; 84484; 85025; 85610; 85730; 86140; 73110; 73130; 71046; 71275; 73221; 90686; G0378 ×2; G0008; S4990; J1885; Q9967

== ENCOUNTER 2020-10-24 19:22 | Emergency (ER) | payer BC ==
[2020-10-24 19:31] VITALS: RESP 18; TEMP 97.5
--- NOTE | 2020-10-24 19:45 | ED ---
Psych HPI - General Source: patient, police Mode of arrival: ambulatory <Watson Christianson - Last Filed: 10/24/20 20:25> <Compa Resendiz - Last Filed: 10/25/20 05:19> - General Chief Complaint: Psychiatric Symptoms Stated Complaint: Mental health Time Seen by Provider: 10/24/20 19:31 - History of Present Illness Initial Comments: This is a 45-year-old male with a history of alcohol abuse, chronic lower back pain on [place] presents emergent department for psychiatric evaluation. Apparently the patient has been drinking today. When I asked how much he is been drinking he says "a lot". The patient states that his daughters and ex- teamed up on him and called the police and made him come to the emergency department. He states that they did this because they want him to quit drinking however there is a claim that he made some sort of suicidal comment. Patient states that he may have said something in passing however states he is not currently suicidal and has never been suicidal. He denies being homicidal as well. Denies any other complaints. (Watson Christianson) - Related Data Home Medications Medication Instructions Recorded Confirmed Ibuprofen [Motrin] 800 mg PO Q8H PRN 07/14/19 10/24/20 Butalb/Acetaminophen/Caffeine 1 cap PO DAILY PRN 10/24/20 10/24/20 [Fioricet 50-300-40 mg Capsule] Cyclobenzaprine [Flexeril] 5 - 10 mg PO HS PRN 10/24/20 10/24/20 Ibuprofen [Motrin] 800 mg PO Q8H PRN 10/24/20 10/24/20 Allergies Allergy/AdvReac Type Severity Reaction Status Date / Time acetaminophen [From Tylenol] Allergy Swelling Verified 10/24/20 20:30 erythromycin base AdvReac kidney Verified 10/24/20 20:30 failure Review of Systems ROS Other: All systems not noted in ROS Statement are negative. <Watson Christianson - Last Filed: 10/24/20 20:25> ROS Other: All systems not noted in ROS Statement are negative. <Compa Resendiz - Last Filed: 10/25/20 05:19> ROS Statement: Those systems with pertinent positive or pertinent negative responses have been documented in the HPI. Past Medical History Past Medical History: COPD Additional Past Medical History / Comment(s): ibs History of Any Multi-Drug Resistant Organisms: MRSA Date of last positivie culture/infection: 2019 MDRO Source:: neck Past Surgical History: Appendectomy, Back Surgery Additional Past Surgical History / Comment(s): exp lap - abd Past Anesthesia/Blood Transfusion Reactions: No Reported Reaction Additional Past Anesthesia/Blood Transfusion Reaction / Comment(s): Pt states he needs his spouse in the recovery room because he wakes up in a panic. Past Psychological History: No Psychological Hx Reported Smoking Status: Former smoker Past Alcohol Use History: Occasional Past Drug Use History: Marijuana - Past Family History Father Family Medical History: Congestive Heart Failure (CHF), Myocardial Infarction (RI), Pneumonia Additional Family Medical History / Comment(s): Father at the age of 52 or 55yrs from complications of an earlier RI. Pt states he had his RI at either age 51 or 52. Mother Family Medical History: No Reported History Additional Family Medical History / Comment(s): Mother is healthy. <Watson Christianson - Last Filed: 10/24/20 20:25> General Exam Limitations: no limitations <Watson Christianson - Last Filed: 10/24/20 20:25> - General Exam Comments Initial Comments: Constitutional: Awake alert Appears comfortable Head: Normocephalic atraumatic Eyes: no conjunctival injection No scleral icterus EOMI Neck: No JVD Supple Heart: Regular rate rhythm normal S1-S2 no murmurs Lungs: Clear to auscultation bilaterally No wheezing No rales Abdomen: Soft nondistended nontender Extremities: Non edematous DP pulses intact Radial pulses intact Neuro: A&Ox3 No focal neurologic deficits Psych: Patient appears intoxicated however denies suicidal or homicidal ideation, does not appear depressed (Watson Christianson) Course <Watson Christianson - Last Filed: 10/24/20 20:25> <Compa Resendiz - Last Filed: 10/25/20 05:19> Vital Signs 10/24/20 10/25/20 19:24 03:05 Temperature 97.5 F L Pulse Rate 105 H 75 Respiratory 18 18 Rate Blood Pressure 148/93 129/80 O2 Sat by Pulse 97 94 L Oximetry - Reevaluation(s) Reevaluation #1: 10/24/20 20:25 Awaiting sobriety for full evaluation. Will transition to oncoming physician. (Watson Christianson) Reevaluation #2: 10/25/20 05:19 Patient was made medically clear for psychiatric evaluation (Compa Resendiz) Medical Decision Making <Compa Resendiz - Last Filed: 10/25/20 05:19> - Medical Decision Making 45 male who was seen and evaluated by psychiatry here in the ER. Patient deemed stable for discharge home not homicidal or suicidal and has not been throughout ER stay (Compa Resendiz) Disposition <Watson Christianson - Last Filed: 10/24/20 20:25> Is patient prescribed a controlled substance at d/c from ED?: No <Compa Reesndiz - Last Filed: 10/25/20 05:19> Clinical Impression: Alcohol intoxication, Adjustment reaction of adult life Disposition: HOME SELF-CARE Condition: Fair Instructions (If sedation given, give patient instructions): Alcohol Use Disorder (ED) Referrals: Marcelino Fonseca MD [Primary Care Provider] - 1-2 days
[2020-10-25 03:06] VITALS: BP 129/80; PULSE 75
== END 2020-10-25 05:26 | disposition home or self-care (01) ==
LOC: EC 19:22
DX: F10.129 Alcohol abuse with intoxication, unspecified (principal); F43.20 Adjustment disorder, unspecified; G89.29 Other chronic pain; M54.5 Low back pain; J44.9 Chronic obstructive pulmonary disease, unspecified; K58.9 Irritable bowel syndrome, unspecified; F12.90 Cannabis use, unspecified, uncomplicated; Z87.891 Personal history of nicotine dependence; Z79.1 Long term (current) use of non-steroidal anti-inflammatories (NSAID); Y90.9 Presence of alcohol in blood, level not specified
CPT/HCPCS: 82075; 99284